=== PATIENT | female | born 1985 | race Two or more races ===

== ENCOUNTER → 2017-05-12 | Outpatient (CLI) | payer OTHER ==
[~2017-05-12] MED LIST: FLUC200T2 PO; MIRA33504 PO; OMEP40CA2 PO; PREVTAB2 PO; PROBCAP4 PO
[2017-05-12 19:48] LABS: FOLLICLE STIMULATING HORMONE 28.2 mIU/mL; LUTEINIZING HORMONE 6.2 mIU/mL
[2017-05-13 08:29] LABS: THYROID PEROXIDASE ANTIBODY < 28.0 U/ML (<60.0)
== END ==
LOC: M WUC 15:50
PROVIDERS: ATTEND Internal Medicine Endocrinology, Diabetes & Metabolism
DX: E28.39 Other primary ovarian failure (principal)

== ENCOUNTER 2017-05-20 13:49 | Outpatient (CLI) | payer OTHER ==
[~2017-05-20] VITALS: Ht 162.6 cm; Wt 81.6 kg
[~2017-05-20 13:49] MED LIST changes: +NS 1,000 ML IV ONE
[2017-05-20] MEDS ORDERED: fentaNYL 100 MCG/2 ML INJECTION (J3010) As Ordered ONE (14:33)
[2017-05-20] MEDS ORDERED: PROPOFOL 200 MG/20 ML VIAL As Ordered ONE (14:36)
[2017-05-20] MEDS ORDERED: LIDOCAINE 2% INJ 100 MG/5 ML SDV (FOR ANES.) As Ordered ONE (14:36)
--- NOTE | 2017-05-20 14:50 | ROOR ---
Patient Name: Kylie Rios Procedure Date: 05/20/2017 2:17 PM Date of : 1985 Age: 31 Room: [facility] Gender: Female Note Status: Finalized Procedure: Upper GI endoscopy Indications: Epigastric abdominal pain, Functional Dyspepsia, Heartburn Providers: Roverto WARE MD Referring MD: Jackeline Allen NP Requesting Provider: Medicines: Monitored Anesthesia Care Complications: No immediate complications. Procedure: Pre-Anesthesia Assessment: - The heart rate, respiratory rate, oxygen saturations, blood pressure, adequacy of pulmonary ventilation, and response to care were monitored throughout the procedure. The Endoscope was introduced through the mouth, and advanced to the second part of duodenum. The upper GI endoscopy was accomplished without difficulty. The patient tolerated the procedure well. Findings: Minimal inflammation was found in the gastric antrum. Biopsies were taken with a cold forceps for Helicobacter pylori testing. The exam of the stomach was otherwise normal. The examined esophagus was normal. The examined duodenum was normal. Impression: - Minimal Gastritis. Biopsied. - Stomach is otherwise normal. - Normal esophagus. - Normal examined duodenum. Recommendation: - Use Prilosec (omeprazole) 40 mg PO daily. - Telephone endoscopist for pathology results in 2 weeks. - If taking/using NSAIDS for aches and pains, then try to reduce/avoid ibuprofen, naproxen, or other non-steroidal anti-inflammatory drugs. - Tylenol (acetaminophen) is OK to take for aches and pains Roverto Ware MD Roverto WARE MD 05/20/2017 2:50:24 PM This report has been signed electronically. Number of Addenda: 0 Note Initiated On: 05/20/2017 2:17 PM Estimated Blood Loss: Estimated blood loss: none.
[2017-05-20 15:10] VITALS: BP 140/80
== END 2017-05-20 15:15 | disposition home or self-care (01) ==
LOC: M OPP 13:49
PROVIDERS: ATTEND Internal Medicine Gastroenterology
DX: K21.9 Gastro-esophageal reflux disease without esophagitis (principal); K29.50 Unspecified chronic gastritis without bleeding; R01.1 Cardiac murmur, unspecified; E28.39 Other primary ovarian failure; H91.90 Unspecified hearing loss, unspecified ear; Z79.3 Long term (current) use of hormonal contraceptives; Z79.899 Other long term (current) drug therapy; Z88.0 Allergy status to penicillin
CPT/HCPCS: 43239; 88305; J3010